=== PATIENT | male | born 1985 | race Hispanic/Latino ===

== ENCOUNTER 2017-10-04 18:36 | Emergency (ER) | payer MEDICAID ==
[2017-10-04 18:36] VITALS: BMI 23.0
--- NOTE | 2017-10-04 20:05 | C.PDOC ---
History Of Present Illness Patient presents to the ER with a complaint of swelling and induration to the left cheek. Patient was see at the beginning of the month at [facility] where he had a "piece of glass" removed by his PMD. Patient was placed on antibiotics and he states he was feeling better, however, when he awake today the swelling had worsened. Denies fever or chills. Time Seen by Provider: 10/04/17 20:03 Chief Complaint (Nursing): Abnormal Skin Integrity History Per: Patient History/Exam Limitations: no limitations Onset/Duration Of Symptoms: Days Current Symptoms Are (Timing): Still Present Location Of Injury: Left: Face Quality Of Symptoms: Draining Severity: Mild Pain Scale Rating Of: 4 Recent travel outside of the [place]: No Past Medical History Reviewed: Historical Data, Nursing Documentation, Vital Signs Vital Signs: Last Vital Signs Temp 98.2 F 10/04/17 20:51 Pulse 88 10/04/17 20:51 Resp 20 10/04/17 20:51 BP 116/82 10/04/17 20:51 Pulse Ox 98 10/04/17 20:51 - Medical History PMH: No Chronic Diseases Surgical History: No Surg Hx Family History: States: No Known Family Hx - Social History Hx Alcohol Use: No Hx Substance Use: Yes - Immunization History Hx Tetanus Toxoid Vaccination: Yes (2 years) Hx Influenza Vaccination: Yes Hx Pneumococcal Vaccination: No Review Of Systems Constitutional: Negative for: Fever, Chills Skin: Positive for: Other (Swelling and induration of left cheek) Physical Exam - Physical Exam Appears: Non-toxic, No Acute Distress Skin: Warm, Dry Head: Normacephalic, Other (3x4cm area of induration to left cheek with small drainage of purulent material. No surrounding erythema or fluctuance.) Ear(s): Bilateral: Normal Oral Mucosa: Moist Throat: No Erythema, No Exudate Neck: No Midline Cervical Tenderness, No Paracervical Tenderness, Supple Chest: Symmetrical Cardiovascular: Rhythm Regular Respiratory: No Rales, No Rhonchi, No Wheezing Gastrointestinal/Abdominal: Soft, No Tenderness Neurological/Psych: Oriented x3 ED Course And Treatment O2 Sat by Pulse Oximetry: 100 (Room air) Pulse Ox Interpretation: Normal Progress Note: Patient refuses CT to evaluate for possible foreign body retention. Patient is awake, alert, oriented, and competent; he understands the risks of not receiving a CT which include cellulitis, abscess, permanent scarring, sepsis, and . Patient requests only antibiotics. Disposition Counseled Patient/Family Regarding: Studies Performed, Diagnosis, Need For Followup, Rx Given - Disposition Referrals: Raúl Tirado MD [Medical Doctor] - Disposition: HOME/ ROUTINE Disposition Time: 20:03 Condition: FAIR Additional Instructions: Please return if symptoms recur Prescriptions: Cephalexin [Keflex] 500 mg PO QID #28 capsule Sulfamethoxazole/Trimethoprim [Bactrim DS 800 mg-160 mg] 1 tab PO BID #14 tab Instructions: Cellulitis (DC) Forms: Trash[employer] (French) - Clinical Impression Clinical Impression: Skin lesion, Facial abscess, Facial cellulitis - Scribe Statement The provider has reviewed the documentation as recorded by the Scribdeshawn Ramírez All medical record entries made by the Ferozibdeshawn were at my direction and personally dictated by me. I have reviewed the chart and agree that the record accurately reflects my personal performance of the history, physical exam, medical decision making, and the department course for this patient. I have also personally directed, reviewed, and agree with the discharge instructions and disposition.
[2017-10-04] MEDS ORDERED: Tmp-Smz 800 mg-160 mg DS Tab PO STA (20:12)
[2017-10-04] MEDS ORDERED: Tmp-Smz 800 mg-160 mg DS Tab ONE (20:22)
[2017-10-04 20:56] VITALS: BP 116/82; PULSE 88; RESP 20; TEMP 98.2
[2017-10-05 03:52] VITALS: O2SAT 100
== END 2017-10-04 20:51 | disposition home or self-care (01) ==
LOC: C.ER 18:36
DX: L02.01 Cutaneous abscess of face (principal); L03.211 Cellulitis of face